=== PATIENT | female | born 2005 | race Two or more races ===

== ENCOUNTER 2025-05-26 02:09 | Emergency (ER) | payer MEDICAID, SELFPAY ==
[2025-05-26 02:11] VITALS: BMI 20.9
[2025-05-26 02:56] VITALS: BP 92/62; PULSE 82; RESP 16; TEMP 36.8; O2SAT 100
--- NOTE | 2025-05-26 02:56 | XR_ITS ---
Examination: PA chest single view TECHNIQUE: Upright PA chest single view Date and time: May 26, 2025 0301 hours INDICATIONS: Shortness of breath dizziness beginning 10 days ago, history asthma FINDINGS: Normal heart size. No pneumonia or pulmonary edema. Thoracic dextroscoliosis 12 degrees IMPRESSION: No pneumonia or pulmonary edema.
--- NOTE | 2025-05-26 03:08 | EDNOTE_ITS ---
ED Allergic Reaction RME/HPI General Chief complaint: Allergic Reaction Stated complaint: LIPS SWELLING AFTER TAKING ZPAK Time Seen by Provider: 05/26/25 02:58 Arrival date/time: 05/26/25 02:09 RME / HPI RME / HPI narrative: See [facility] for Dr. Burkett's HPI Documentation. Related Data Previous Rx's ?Medication ?Instructions ?Recorded albuterol sulfate 90 mcg/actuation 2 puff inhalation Q 6H PRN 05/26/25 aerosol inhaler shortness of breath or wheez ing #8.5 grams levofloxacin 500 mg tablet 500 mg PO QDAY 7 days #7 ta bs 05/26/25 prednisone 50 mg tablet 50 mg PO QDAY #3 tabs Allergies Allergy/AdvReac Type Severity Reaction Status Date / Time azithromycin (From Zithromax Allergy Verified 05/26/25 02:14 Z-David) Review of Systems Review of Systems Systems Reviewed: All systems reviewed, normal except as documented Past Medical History Social History SMOKING STATUS: Never smoker ED Exam Narrative Physical exam: See [facility] for Dr. Burkett's Physical Exam Documentation. Course Quality Measures none Orders Category Date Time Status Bedside COVID-19 Antigen Test NOW Care 05/26/25 02:56 Completed Bedside Influenza A&B Antigen Test NOW Care 05/26/25 02:56 Completed XR chest 1V portable Stat Exams 05/26/25 02:56 Completed Strep A Rapid Stat Lab 05/26/25 03:01 Completed Albuterol/Ipratr R[place] [Duoneb Rt [place]] Med 05/26/25 02:57 Discontinued 3 ml INH X1 ONE DiphenhydrAMINE [Benadryl] Med 05/26/25 02:57 Discontinued 50 mg PO X1 ONE Famotidine [Pepcid] Med 05/26/25 02:57 Discontinued 40 mg PO X1 ONE predniSONE Med 05/26/25 02:57 Discontinued 60 mg PO X1 ONE Vital Signs Vital signs: Vital Signs Temperature 98.2 F 05/26/25 02:56 Pulse Rate 82 05/26/25 02:56 Respiratory Rate 16 05/26/25 02:56 Blood Pressure 92/62 05/26/25 02:56 Pulse Oximetry (%) 100 05/26/25 02:56 Oxygen Delivery Method Room Air 05/26/25 02:56 Allergic Reaction MDM Narrative [facility] Narrative:: Scribe Attestation: I, Lea Victoria, am scribing for and in the presence of Dr. Burkett. This section includes all my notes and documentations, including HPI, PE, and ED course. Dwayne Burkett MD HPI: 19 y/p female present with cough, congestion, and sore throat x 10 days. Patient took Zithromax a few hours ago and noticed her lips swelling. No SOB. No other complaints. ROS: All negative except as documented in HPI. Physical Exam: General: Alert and oriented. No acute distress when remaining still. Eyes: Conjunctivae and lids clear. ENT: No nasal congestion. Pharynx normal. TM normal bilaterally. Neck: Supple. Heart: RRR. Lungs: No respiratory distress. Good air movement with rhonchi. Abdomen: Soft and nontender. Back: No CVA tenderness. Skin: Warm and dry. Neuro: Alert and oriented X 3. I reviewed all diagnostic test results: My interpretation of the chest x-ray is increased bronchial markings. Covid/Influenza/Strep: Negative. At this point, diagnoses include: Drug Allergy, Respiratory Infection. Treatment here included: Duoneb [place] 3 mL, Benadryl 50 mg, Pepcid 40 mg, Prednisone 60 mg Significant improvement noted. Recommended outpatient care. Based on my best medical judgment, made decision no further evaluation or treatment indicated at this time. Patient understands and agrees to the discharge instructions customized and printed, see below. Discharge instructions from Dr. Burkett: --After evaluation, you have bronchitis. And you were treated for Zithromax allergic reaction. Avoid Zithromax in the future. --No physical exertion for 3 days to help rest the lungs. ?No smoking or exposure to smoking or pets or dust or cold or humidity. -- Levaquin to kill the germs causing the bronchitis. --Prednisone to help decrease the swelling in the airways. --Albuterol 2 puffs every 4-6 hours for 24 hours as needed for cough or shortness of breath. --See a private doctor next week if not completely better. --Seek immediate medical care with worsening or with any concerns. Dwayne Burkett MD Patient data External records reviewed:: [facility] previous records (No prior ED records available for review.) Clinical information provided by:: patient Social determinants that could affect healthcare access:: none Patient has the following chronic illnesses:: None reported How is presenting disease/condition affected by chronic disease/condition?: no chronic disease Evaluation data The following diagnostics were reviewed and interpreted by me:: radiology exam(s) and other (specify) (Rapid Strep, COVID/Influenza) Lab and/or radiology exams considered but not ordered:: None Interpretation Summary: I reviewed all diagnostic test results: My interpretation of the chest x-ray is increased bronchial markings. Covid/Influenza/Strep: Negative. Medications / Prescriptions Medications or Prescriptions considered but not ordered:: None Medication administrations:: Medication Administration History Discontinued Medications Albuterol/Ipratropium (Albuterol/Ipratropium (Duoneb) Rt [place] 3 Ml Nebu) 3 ml INH X1 ONE Stop: 05/26/25 02:58 Last Admin: 05/26/25 03:15 Dose: 3 ml Documented By: LAKESHA Diphenhydramine HCl (Diphenhydramine 25 Mg Capsule) 50 mg PO X1 ONE Stop: 05/26/25 02:58 Last Admin: 05/26/25 03:10 Dose: 50 mg Documented By: LAUREN Famotidine (Famotidine 20 Mg Tablet) 40 mg PO X1 ONE Stop: 05/26/25 02:58 Last Admin: 05/26/25 03:10 Dose: 40 mg Documented By: LAUREN Prednisone (Prednisone 20 Mg Tablet) 60 mg PO X1 ONE Stop: 05/26/25 02:58 Last Admin: 05/26/25 03:09 Dose: 60 mg Documented By: LAUREN Duoneb Rt [place] 3 mL, Benadryl 50 mg, Pepcid 40 mg, Prednisone 60 mg Consultations Consultation(s) initiated? (list below): No Diagnosis Differential Diagnosis allergic reaction: anaphylaxis, allergic reaction, angioedema, contact dermatitis, adverse reaction to drug, viral enanthem and urticaria Most likely diagnosis given after review of the tests above:: Drug Allergy, Respiratory Infection Admission Indicated Admission indicated?: not indicated Explain why admission is indicated or not indicated:: With significant improvement and no condition needing emergent intervention, there was no indication for admission. Admission Request Was there a request for admission?: No Disposition Plan Disposition Plan: Discharge Discharge Attestation Discharge Attestation: The patient and all family members were given an opportunity to ask questions and understood the discharge instructions. Discharge instructions specifically effects, indications for sooner follow up or return to the emergency department, and the expected course of current diagnosis. Patient condition: Stable Discharge Plan Plan Patient Disposition: HOME (Self Care) Prescriptions/Referrals Prescriptions/Med Rec: New prednisone 50 mg tablet 50 mg PO QDAY Qty: 3 0RF levofloxacin 500 mg tablet 500 mg PO QDAY 7 Days Qty: 7 0RF albuterol sulfate 90 mcg/actuation HFA aerosol inhaler 2 puff inhalation Q6H PRN (Reason: shortness of breath or wheezing) Qty: 8.5 0RF Problem List Clinical Impression: Drug allergy, Respiratory infection Patient/Caregiver Discharge Instructions Discharge Activity: activity as tolerated Education Materials: ED Bronchitis, Antibiotics (Child), ED Drug Reaction, Other Additional Instructions: Discharge instructions from Dr. Burkett: --After evaluation, you have bronchitis. And you were treated for Zithromax allergic reaction. Avoid Zithromax in the future. --No physical exertion for 3 days to help rest the lungs. ?No smoking or exposure to smoking or pets or dust or cold or humidity. -- Levaquin to kill the germs causing the bronchitis. --Prednisone to help decrease the swelling in the airways. --Albuterol 2 puffs every 4-6 hours for 24 hours as needed for cough or shortness of breath. --See a private doctor next week if not completely better. --Seek immediate medical care with worsening or with any concerns. Print Language: Israeli Stand Alone Forms: Alejandra Award Info., Patient Portal Info Letter
[2025-05-26] MEDS: FAMOTIDINE 20 MG TABLET 40 MG PO (03:10)
[2025-05-26] MEDS: ALBUTEROL/IPRATROPIUM (Duoneb) RT SOL 3 ML NEBU INH (03:15)
[2025-05-26 04:00] LABS: Strep A Rapid Negative (Negative)
[2025-05-26 04:27] VITALS: BP 102/70; PULSE 82; RESP 18; TEMP 36.8; O2SAT 98
[2025-05-26 04:32] VITALS: PULSE 73; RESP 20; O2SAT 99
== END 2025-05-26 04:28 | disposition home or self-care (01) ==
LOC: SERX 06:55
PROVIDERS: Emergency Provider Emergency Medicine; PCP Physician Assistant
DX: J40 Bronchitis, not specified as acute or chronic (principal); R22.0 Localized swelling, mass and lump, head; T36.3X5A Adverse effect of macrolides, initial encounter
CPT/HCPCS: 71045; 87400; 87651; 87811; 94640; 99283; A9270; J7512